=== PATIENT | male | born 1940 | race Two or more races ===

== ENCOUNTER 2023-09-05 18:12 | Emergency (ER) | payer OTHER ==
[~2023-09-05] VITALS: Ht 177.8 cm; Wt 85.3 kg
[2023-09-05 20:53] LABS: HEMATOCRIT 42.5 % (39.0-48.0); HEMOGLOBIN 14.6 g/dL (13-16.00); MEAN CELL VOLUME 87.4 fL (80.0-100.00); MEAN CORPUSCULAR HEMOGLOBIN 29.9 pg (27.00-32.0); MEAN CORPUSCULAR HGB CONC 34.2 g/dl (32.0-36.0); PLATELET COUNT 137 K/uL (150-450); RED BLOOD COUNT 4.87 M/uL (4.00-6.00); RED CELL DISTRIBUTION WIDTH 13.2 % (11.5-14.5)
[2023-09-05 20:56] LABS: PH,URINE 5.5 (5.0-8.0); URINE APPEARANCE Clear; URINE BILIRRUBIN Negative (NEGATIVE); URINE BLOOD Trace; URINE COLOR Yellow; URINE GLUCOSE Negative (NEGATIVE); URINE LEUKOCYTE Negative; URINE NITRATE Negative; URINE PROTEIN Negative (NEGATIVE)
[2023-09-05 20:59] LABS: URINE BACTERIA 6.2 uL (0.0-1933); URINE RBC 5.1 uL (0.0-20.8); URINE WBC 3.4 uL (0.0-23.2)
[2023-09-05 21:14] LABS: CREATININE SERUM 1.02 mg/dL (0.70-1.30); GFR 69.41; POTASSIUM 3.75 mEq/L (3.5-5.1)
[2023-09-05 21:22] LABS: URINE EPITHELIAL CELLS 0.6 uL (0.0-38.8)
== END 2023-09-05 22:10 | disposition home or self-care (01) ==
LOC: EDBD 18:13 → ER 18:13
PROVIDERS: General Practice
DX: U07.1 COVID-19 (principal); R53.1 Weakness; J10.1 Influenza due to other identified influenza virus with other respiratory manifestations